=== PATIENT | male | born 1950 | race Caucasian/White ===

== ENCOUNTER 2016-08-18 06:36 | Day surgery (SDC) | payer BC ==
[2016-08-17 08:25] LABS: HEMATOCRIT 43.9 % (40.0-51.0); HEMOGLOBIN 14.6 g/dL (13.6-17.8)
--- NOTE | ~2016-08-18 | OP ---
Record Of Operation [facility] [address] [place]. [address] NAME: TABBY PASCUAL : 48 STATUS : REG [facility] [place] PAT#: [id number] AGE: 65 ADM/REG DATE : 08/18/16 MR#: [id number] REPORT SERV DATE: 08/18/16 DICTATED BY: AUSTEN AARON III DATE: 08/18/16 REPORT STATUS : Draft TRANSCRIBED BY: MODL DATE: 08/18/16 DATE OF PROCEDURE: 08/18/2016 PREOPERATIVE DIAGNOSIS: Right hydrocele. POSTOPERATIVE DIAGNOSIS: Right hydrocele. PROCEDURE: Right hydrocelectomy. ANESTHESIA: General. SPECIMEN: Hydrocele sac. BLOOD LOSS: 10 mL. INDICATION: Mr. Pascual is a 65-year-old white male with a large right hydrocele extending up to the external inguinal ring. Options have been discussed. He wishes to proceed with hydrocelectomy. DESCRIPTION OF PROCEDURE: After consent was obtained, the patient was identified and was taken to the OR and put to sleep in the supine position. He was then prepped and draped in usual fashion. An incision was made in the median raphe and taken down to the hydrocele sac. It was freed up from surrounding structures and delivered through the incision. The sac was then dissected free of any attachments. The sac was opened and approximately 200 mL of fluid was retrieved. Excess sac was excised. The remaining sac was then everted around the spermatic cord and closed in a bottleneck fashion. Bleeding points were controlled with cautery. The hemiscrotum was irrigated. The testicle was replaced in the hemiscrotum. The dartos was closed with a running, locking 3-0 chromic, and the skin was closed with a running 3-0 chromic. Dermabond was applied. 10 mL of Marcaine was injected as a spermatic cord block. A pressure dressing was then applied. The patient was awakened and taken to recovery in stable condition. PH/MODL Austen Aaron III, M.D. / [id number] CC: Darnell Olvera III, MD
[~2016-08-18 06:36] MED LIST: ARIMIDEX1 PO; CENTRUM SILVER PO; CO Q-10200 MG PO; FISH-EPA1000 MG PO; FOLIC ACID800 MCG PO; ZOCOR80 MG PO; [UNRECOGNIZED DRUG - CODE] PO; [UNRECOGNIZED DRUG - OTHER]; [UNRECOGNIZED DRUG - OTHER] PO; [UNRECOGNIZED DRUG - REMARK]
== END 2016-08-18 17:11 | disposition home or self-care (01) ==
LOC: SDC 06:36
PROVIDERS: Urology
PROC: 0VBF0ZZ Excision of Right Spermatic Cord, Open Approach (ICD-10-PCS; principal; 2016-08-18 07:45)
DX: N43.0 Encysted hydrocele (principal); J42 Unspecified chronic bronchitis; M20.21 Hallux rigidus, right foot; K44.9 Diaphragmatic hernia without obstruction or gangrene; E78.00 Pure hypercholesterolemia, unspecified; K21.9 Gastro-esophageal reflux disease without esophagitis; Z98.41 Cataract extraction status, right eye; Z98.42 Cataract extraction status, left eye; Z96.1 Presence of intraocular lens; Z98.890 Other specified postprocedural states; Z88.0 Allergy status to penicillin; Z88.2 Allergy status to sulfonamides; Z90.89 Acquired absence of other organs; Z79.899 Other long term (current) drug therapy
CPT/HCPCS: 85014; 85018; 88302; 93005; A9270-GY; J0360; J0690; J1170; J2250; J2405; J2550; J3010